=== PATIENT | male | born 1990 | race Caucasian/White ===

== ENCOUNTER 2017-10-08 19:48 | Emergency (ER) | payer SELFPAY ==
[~2017-10-08] VITALS: Ht 188 cm; Wt 83.0 kg
--- NOTE | 2017-10-09 15:54 | EKG ---
[facility] [address] [facility] [place] [address] Signed Sinus tachycardia Incomplete right bundle branch block Borderline ECG No previous ECGs available Confirmed by CARLOS JEONG MD ([id number]) on 10/09/2017 3:54:13 PM Electronically Signed By: CARLOS JEONG MD 10/09/17 1554 PATIENT NAME: ANTONELLA ODONNELL Electrocardiogram DATE OF : 89 PHYSICIAN: CARLOS JEONG MD REPORT #: [id number] REPORT IS CONFIDENTIAL AND NOT TO BE RELEASED WITHOUT AUTHORIZATION
== END 2017-10-08 21:32 | disposition home or self-care (01) ==
LOC: ED 19:48
DX: R00.2 Palpitations (principal); F17.200 Nicotine dependence, unspecified, uncomplicated
CPT/HCPCS: 93005; 93010; 99284

== ENCOUNTER 2024-11-23 19:40 | Emergency (ER) | payer OTHER ==
[~2024-11-23] VITALS: Ht 188 cm; Wt 99.8 kg
--- OUTSIDE RECORDS SUMMARY | 2024-11-23 19:42 | XMS ---
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 Ash has no Care Guidelines for this patient. [facility] VISIT COUNT (12 MO.) 1 DEREK Blair TOTAL 1 NOTE: Visits indicate total known visits. ED/UCC VISIT TRACKING (12 MO.) 11/23/2024 19:41 DEREK [facility] OR TYPE: Emergency COMPLAINT: - ODD SYMPTOMS INPATIENT VISIT TRACKING (12 MO.) No inpatient visits to display in this time frame [id number]
[2024-11-23 20:05] LABS: BASOPHILS 0.8 % (0-2); EOSINOPHILS 0.9 % (0-6); HEMATOCRIT 43.3 % (35.0-50.0); LYMPHOCYTES 19.2 % (24-44); MCHC 34.6 g/dl (30-36); MCV 92.5 fl (81-99); NEUTROPHILS 68.1 % (39-80); PLATELET COUNT 237 K/uL (140-440); RBC 4.68 M/ul (4.3-5.7); RDW 13.3 (10.5-15.0)
[2024-11-23 20:30] LABS: ALBUMIN 4.1 g/dL (3.4-5.0); ANION GAP 10.7 (7-21); BILIRUBIN, TOTAL 0.3 ng/dL (0.2-1.0); BUN/CREATININE RATIO 10.28 (6.0-28.6); CALCIUM 8.9 mg/dL (8.5-10.1); CREATININE, SERUM 1.07 mg/dL (0.70-1.30); MAGNESIUM 1.9 mg/dL (1.8-2.4); POTASSIUM 3.7 mmol/L (3.5-5.1); PROTEIN, TOTAL 8.2 g/dL (6.4-8.2); TSH, 3RD GENERATION 1.955 uIU/mL (0.358-3.740)
[2024-11-23 21:38] VITALS: BP 147/100
--- NOTE | 2024-11-24 19:28 | EKG ---
[facility] [address] [facility] [place] [address] Signed Normal sinus rhythm Incomplete right bundle branch block Borderline ECG When compared with ECG of 21-DEC-2017 23:36, Questionable change in QRS axis Confirmed by Danitza Anderson MD ([id number]) on 11/24/2024 7:27:58 PM Electronically Signed By: DANITZA ANDERSON MD 11/24/24 192 PATIENT NAME: ANTONELLA ODONNELL Electrocardiogram DATE OF : 89 PHYSICIAN: DANITZA ANDERSON MD REPORT #: [id number] REPORT IS CONFIDENTIAL AND NOT TO BE RELEASED WITHOUT AUTHORIZATION
== END 2024-11-23 21:30 | disposition home or self-care (01) ==
LOC: ED 19:40
PROVIDERS: Family Medicine
DX: R00.2 Palpitations (principal); R42 Dizziness and giddiness; F17.200 Nicotine dependence, unspecified, uncomplicated
CPT/HCPCS: 36415; 80053; 83735; 84443; 84484; 85025; 93005; 93010; 99284